=== PATIENT | male | born 1970 | race African-American/Black ===

== ENCOUNTER 2019-04-19 22:47 | Emergency (ER) | payer MEDICAID, OTHER ==
[~2019-04-19] VITALS: Ht 185.4 cm; Wt 68.0 kg
[~2019-04-19 22:47] MED LIST: CREON DR 12,001 EACH PO; DILAUDID1 MG/M1 IVP; DILAUDID4 MG ORAL; LISINOPRIL20 MG ORAL; OMEPRAZOLE40 M1 ORAL; PROTONIX40 MG ORAL; ZOFRAN ODT4 MG ORAL
[2019-04-19 22:58] VITALS: BP 156/90
--- NOTE | 2019-04-19 22:58 | NUR ---
ED Nurse Note: Walk-in patient with complaints of abodminal pain since earlier this afternoon. Patient reports history of pancreatitis. will continue to monitot.
[2019-04-19] MEDS ORDERED: LISINOPRIL5 MG ORAL (23:05)
[2019-04-19] MEDS ORDERED: METFORMIN500 MG/5 M PO (23:06)
--- NOTE | 2019-04-19 23:15 | NUR ---
ED Nurse Note: Blood labs drawn and sent to lab.
--- NOTE | 2019-04-19 23:24 | NUR ---
ED Nurse Note: ERMd at bedside.
[2019-04-19] MEDS ORDERED: Omnipaque-300 100ml vial INJ PRN (23:30)
[2019-04-19] MEDS ORDERED: Morphine Sulfate 4mg/ml Inj (IV USE ONLY) IVP ONE (23:30)
--- NOTE | 2019-04-19 23:31 | Emergency Room Report ---
History of Present Illness General Chief Complaint: Abdominal Pain Source: Patient Present Illness HPI Disclaimer: Please note that this report is being documented using [employer] technology. This can lead to erroneous entry secondary to incorrect interpretation by the dictating instrument. HPI: 48-year-old male history of former alcohol abuse, pancreatitis and gallstones presents for evaluation abdominal pain. Symptoms began today approximately 1 PM. Steadily worsening throughout the day. He reports nausea and some bilious emesis. Denies hematemesis. He reports pain in the upper abdomen more on the right than the left though there is pain in the left as well. Reports nausea but no longer vomiting. Denies diarrhea. Denies fever, chills, chest pain. Similar presentation in [place] [id number] told he had gallstones and that he should have his gallbladder removed but he declined at that time. Also had a history of pancreatitis with pancreatic stents but they have since been removed. Denies any recent alcohol use. Quit drinking 5 years ago. Denies drug use. PMH: Pancreatitis, former alcohol abuse, cholecystitis PSH: Cervical spines surgery Allergies: Denies Social Hx: Former alcohol use, sober 5 years COVID-19 risk:Travel to affect: No Allergies: Coded Allergies: No Known Allergies (Unverified , 04/19/19) Nursing Documentation-PMH Hx Cardiac Problems: Yes Hx Hypertension: Yes Hx Cancer: No Hx Neurological Problems: No Review of Systems All Other Systems: negative except mentioned in HPI Physical Exam Vital Signs Date Time Temp Pulse Resp B/P (MAP) Pulse Ox O2 Delivery O2 Flow Rate FiO2 04/19/19 22:58 98.2 79 18 156/90 (112) 98 Room Air General: Awake and alert, appears uncomfortable HEENT: NC/AT. EOMI. Cardiovascular: RRR. S1 and S2 normal. No murmur appreciated Resp: Normal work of breathing. No cough, wheezing or crackles appreciated Abdomen: Abdomen is soft, nondistended. There is tenderness palpation of the epigastrium and right upper quadrant with positive Atkins's tenderness. There is tenderness in the left upper quadrant as well though less severe. No tenderness in the lower quadrants no rebound. No masses appreciated. Skin: Intact. No abrasions, laceration or rash over the exposed skin MSK: Normal tone and bulk. Moving all extremities. No obvious deformity. Neuro: Awake and alert. Mentating appropriately. Medical Decision Making Diagnostic Impression: Primary Impression: Cholecystitis ER Course 48-year-old male presents for evaluation of abdominal pain. Differential includes was not limited to cholecystitis, pancreatitis, gastritis, gastroenteritis, alcohol abuse, hepatitis, nephrolithiasis to name a few. Most consistent with either pancreatitis or cholecystitis. Will draw broad labs, start IV fluids, antiemetics, pain medication and sent for CT scan of the abdomen and ultrasound as well. Laboratory Tests Test 04/19/19 23:15 04/20/19 00:10 White Blood Count 12.5 K/UL (4.8-10.8) H Red Blood Count 4.37 M/UL (4.70-6.10) L Hemoglobin 13.0 G/DL (14.2-18.0) L Hematocrit 40.1 % (42.0-52.0) L Mean Corpuscular Volume 92 FL (80-99) Mean Corpuscular Hemoglobin 29.6 PG (27.0-31.0) Mean Corpuscular Hemoglobin Concent 32.3 G/DL (32.0-36.0) Red Cell Distribution Width 12.8 % (11.6-14.8) Platelet Count 429 K/UL (150-450) Mean Platelet Volume 5.0 FL (6.5-10.1) L Neutrophils (%) (Auto) 69.1 % (45.0-75.0) Lymphocytes (%) (Auto) 22.0 % (20.0-45.0) Monocytes (%) (Auto) 5.7 % (1.0-10.0) Eosinophils (%) (Auto) 1.6 % (0.0-3.0) Basophils (%) (Auto) 1.6 % (0.0-2.0) Sodium Level 138 MMOL/L (136-145) Potassium Level 4.3 MMOL/L (3.5-5.1) Chloride Level 99 MMOL/L (98-107) Carbon Dioxide Level 28 MMOL/L (21-32) Anion Gap 11 mmol/L (5-15) Blood Urea Nitrogen 15 mg/dL (7-18) Creatinine 1.5 MG/DL (0.55-1.30) H Estimate Glomerular Filtration Rate > 60 mL/min (>60) Glucose Level 142 MG/DL (74-106) H Calcium Level 9.9 MG/DL (8.5-10.1) Total Bilirubin 0.5 MG/DL (0.2-1.0) Aspartate Amino Transferase (AST) 12 U/L (15-37) L Alanine Aminotransferase (ALT) 13 U/L (12-78) Alkaline Phosphatase 53 U/L (46-116) Total Protein 8.1 G/DL (6.4-8.2) Albumin 4.8 G/DL (3.4-5.0) Globulin 3.3 g/dL Albumin/Globulin Ratio 1.5 (1.0-2.7) Lipase 377 U/L (73-393) Urine Color Yellow Urine Appearance Clear Urine pH 5 (4.5-8.0) Urine Specific [place] 1.015 (1.005-1.035) Urine Protein Negative (NEGATIVE) Urine Glucose (UA) Negative (NEGATIVE) Urine Ketones 2+ (NEGATIVE) H Urine Blood Negative (NEGATIVE) Urine Nitrite Negative (NEGATIVE) Urine Bilirubin Negative (NEGATIVE) Urine Urobilinogen 1 MG/DL (0.0-1.0) H Urine Leukocyte Esterase 1+ (NEGATIVE) H Urine RBC 0 /HPF (0 - 0) Urine WBC 0-2 /HPF (0 - 0) Urine Squamous Epithelial Cells None /LPF (NONE/OCC) Urine Bacteria None /HPF (NONE) CT/MRI/US Diagnostic Results CT/MRI/US Diagnostic Results : Impression Preliminary Findings Only See Final Report For Complete Findings CT ABDOMEN & PELVIS With Contrast: Comparison: 09/17/12 pre- Normal lungs. Normal heart. Normal liver, bilateral kidneys, spleen and bilateral adrenal glands. Distended gallbladder with sludge. Extensive calcifications through the pancreas consistent with chronic pancreatitis. Distention of common hepatic duct at the hilum measuring 9.0 mm. Dilatation of the pancreatic duct up to 7 mm. Prominent appearance of the pancreatic head, cannot exclude inflammatory changes/acute pancreatitis. This area is essentially stable in size in the interval. Unremarkable stomach. No hiatal hernia. Normal small bowel. Diverticulosis with no signs of diverticulitis. Normal appendix. Urinary bladder is unremarkable with borderline thickening of the wall. Osseous structures within normal limits. Radiologist: Bridgette Cartagena MD Study ready at 00:48 and initial results transmitted at 01:09 Reevaluation Time: 02:34 Last Vital Signs Date Time Temp Pulse Resp B/P (MAP) Pulse Ox O2 Delivery O2 Flow Rate FiO2 04/19/19 22:58 79 18 Room Air 04/19/19 22:58 98.2 156/[address] does not show evidence of obstruction but does find evidence of chronic pancreatitis. No necrotizing infection identified. There was biliary sludge noted and an ultrasound was obtained. Preliminary interpretation concerning for dilated CBD, borderline GB wall. No pericholecystic fluid was appreciated by metallurgical or materials technician. Will treat as an acute cholecystitis. No evidence of a sending cholangitis at this time. Labs have returned within normal limits. He received Zosyn. Will arrange for admission and surgical evaluation. He will be transferred to a [facility] hospital. Stable condition for transfer Disposition: ER [facility] Condition: Stable Nicolas Mohan MD Apr 19, 2019 23:31
[2019-04-19 23:35] LABS: BASOPHILS % (AUTO) 1.6 % (0.0-2.0); EOSINOPHILS % (AUTO) 1.6 % (0.0-3.0); HEMATOCRIT 40.1 % (42.0-52.0); MEAN CORPUSCULAR VOLUME 92 FL (80-99); MONOCYTES % (AUTO) 5.7 % (1.0-10.0); NEUTROPHILS % (AUTO) 69.1 % (45.0-75.0); PLATELET COUNT 429 K/UL (150-450); RED BLOOD COUNT 4.37 M/UL (4.70-6.10); RED CELL DISTRIBUTION WIDTH 12.8 % (11.6-14.8); WHITE BLOOD COUNT 12.5 K/UL (4.8-10.8)
[2019-04-19 23:39] LABS: ANION GAP 11 mmol/L (5-15); BLOOD UREA NITROGEN 15 mg/dL (7-18); CALCIUM 9.9 MG/DL (8.5-10.1); CARBON DIOXIDE 28 MMOL/L (21-32); CHLORIDE 99 MMOL/L (98-107); CREATININE 1.5 MG/DL (0.55-1.30); POTASSIUM 4.3 MMOL/L (3.5-5.1); SODIUM 138 MMOL/L (136-145)
[2019-04-19 23:43] LABS: ALANINE AMINOTRANSFERASE 13 U/L (12-78); ALBUMIN 4.8 G/DL (3.4-5.0); ALBUMIN/GLOBULIN RATIO 1.5 (1.0-2.7); ALKALINE PHOSPHATASE 53 U/L (46-116); ASPARTATE AMINO TRANSFERASE 12 U/L (15-37); BILIRUBIN,TOTAL 0.5 MG/DL (0.2-1.0)
--- NOTE | 2019-04-20 00:25 | NUR ---
ED Nurse Note: Patient relaxing comfortably with no complaints, will continue to monitor.
[2019-04-20 00:31] LABS: APPEARANCE,URINE CLEAR; BILIRUBIN, URINE NEGATIVE (NEGATIVE); GLUCOSE, URINE (UA) NEGATIVE (NEGATIVE); KETONES,URINE 2+ (NEGATIVE); LEUKOCYTE ESTERASE ,URINE 1+ (NEGATIVE); NITRITE,URINE NEGATIVE (NEGATIVE); PH,URINE 5 (4.5-8.0); PROTEIN,URINE NEGATIVE (NEGATIVE); UROBILINOGEN,URINE 1 MG/DL (0.0-1.0)
[2019-04-20 00:41] LABS: COLOR,URINE YELLOW
[2019-04-20] MEDS ORDERED: HYDROmorphone 1mg/ml Carpuject IVP ONE ×2 (00:45→04:45)
--- NOTE | 2019-04-20 01:09 | Diagnostic Imaging Report ---
INDICATION: Abdominal pain TECHNIQUE: Continuous helical transaxial imaging of the abdomen and pelvis was obtained from the lung bases to the pubic symphysis during intravenous contrast administration. Coronal 2-D reformats were also obtained. Study obtained in a Siemens sensation [address] Automatic Exposure Control was utilized. Total Dose length Product (DLP): 243.[address] Dose Index Volume (CTDIvol): 4.7 mGy COMPARISON: None FINDINGS: Lungs: The visualized lung bases are clear. Liver: Unremarkable Gallbladder/biliary system: There is a layering density within the dependent portion of the gallbladder which may be small stones or sludge. Very mild biliary ductal dilatation is noted within the liver. The CBD is not well seen but is not likely dilated.. Spleen: Unremarkable Pancreas: There is extensive parenchymal calcification indicative of chronic pancreatitis within the head body and tail of the pancreas with dilatation of the main pancreatic duct. The area of the head of the pancreas is more prominent, but stable in appearance compared to the exam from 2013. Since that time, the body and tail the pancreas appear more atrophic. The prominence of the head of the pancreas although stable could be due to superimposed acute pancreatitis. Please correlate clinically. In addition could not exclude completely exclude the possibility of underlying tumor. Consider follow-up endoscopic ultrasound for further evaluation. No discrete mass is seen by this exam. Kidneys/Bladder: No hydronephrosis identified. Both kidneys enhance symmetrically. The urinary bladder is unremarkable.. Adrenal glands: Unremarkable Aorta/IVC: Mild calcification of the aorta and iliac arteries demonstrated. Bowel: There is moderate formed stool within the colon. There is no small bowel dilatation. Appendix is normal. Peritoneum: There is no free fluid. Bones: Unremarkable IMPRESSION: Evidence of chronic pancreatitis. Prominence of the head of the pancreas although stable compared to prior study from 2013 is noted. Superimposed acute pancreatitis is not excluded. Please correlate clinically. In addition, consider follow-up endoscopic ultrasound. Minimal biliary ductal dilatation in the liver. Cholelithiasis and/or sludge. Atherosclerotic vascular disease Moderate stool retention in the colon. The CT scanner at [facility] is accredited by the [employer] and the scans are performed using dose optimization techniques as appropriate to a performed exam including Automatic Exposure control.
[2019-04-20] MEDS ORDERED: Piperacillin/Tazobactam 3.375 GM in NS 110 ML IVPB ONE (01:15)
--- NOTE | 2019-04-20 01:45 | NUR ---
ED Nurse Note: Patient went down for abdominal ultrasound.
--- NOTE | 2019-04-20 01:45 | NUR ---
ED Nurse Note: Patient tolerated antibiotic well, will continue to monitor for return from Ultrasound.
--- NOTE | 2019-04-20 02:28 | NUR ---
ED Nurse Note: Patient returned from ultrasound,
--- NOTE | 2019-04-20 03:09 | Diagnostic Imaging Report ---
Indication: Abdominal pain Technique: Grayscale and duplex Doppler imaging of the abdomen performed. Comparison: None Findings: The liver is unremarkable. Doppler interrogation of the main portal vein shows patency with hepatopedal, monophasic flow. There is no biliary ductal dilatation identified. Gallbladder is notable for sludge and stones. The CBD is 1.2 cm.. The area of the pancreas shows calcifications which shadowing in a dilated main pancreatic duct. There demonstrated part of the aorta and IVC show no definite abnormalities. Both kidneys appear unremarkable. There is no hydronephrosis. IMPRESSION: Cholelithiasis. Dilated common bile duct. The dilated CBD is not appreciated on CT which was obtained subsequently. There was mild intrahepatic biliary ductal dilatation. Abnormal pancreas. Please refer to the CT report.
--- NOTE | 2019-04-20 03:45 | NUR ---
ED Nurse Note: Belongings sheet completed.
--- NOTE | 2019-04-20 04:00 | NUR ---
spoke with doctor at [facility] who accepted the transfer possibly to [facility]. Registration notified.
--- NOTE | 2019-04-20 04:15 | NUR ---
ED Nurse Note: Patient is resting comfortably with no s/s of acute distress. will continue to monitor for transfer.
--- NOTE | 2019-04-20 05:02 | NUR ---
ED Nurse Note: Report called into Anna RICKETTS at [facility].
--- NOTE | 2019-04-20 05:12 | NUR ---
ED Nurse Note: Patient departed with BLS to [place].
[2019-04-20 05:15] VITALS: BP 156/90
== END 2019-04-20 05:12 | disposition short-term general hospital (02) ==
LOC: EMR 23:18
DX: K81.9 Cholecystitis, unspecified (principal); I10 Essential (primary) hypertension; K86.1 Other chronic pancreatitis
CPT/HCPCS: 74177; 76700; 76705; 80053; 81003; 83690; 85025; 96361; 96365; 96375; 96376; J1170; J2270; J2405; J2543; J7030; Q9967; Z7502; 99284

== ENCOUNTER 2019-05-25 20:47 | Emergency (ER) | payer OTHER ==
[~2019-05-25] VITALS: Ht 188 cm; Wt 70.3 kg
[~2019-05-25 20:47] MED LIST changes: +LISINOPRIL5 MG ORAL; +METFORMIN500 MG/5 M PO
[2019-05-25 21:08] VITALS: BP 157/95
--- NOTE | 2019-05-25 21:08 | NUR ---
ED Nurse Note: Patient walked in from home d/t abdominal pain 10/10 aching for 3 weeks. Patient aao x 4 and ambulatory with steady gait. Patient stated he has hx of gallbladder stones and pancreatitis. Patient placed in room, stable during assessment.
--- NOTE | 2019-05-25 21:13 | NUR ---
ED Nurse Note: ERMD at bedside.
[2019-05-25] MEDS ORDERED: METFORMIN HCL1000 M1 ORAL (21:14)
[2019-05-25] MEDS ORDERED: Morphine Sulfate 4mg/ml Inj (IV USE ONLY) IVP ONE (21:15)
[2019-05-25] MEDS ORDERED: Ketorolac 30mg Inj IV ONE (21:15)
--- NOTE | 2019-05-25 21:15 | NUR ---
X-ray notified to page US tech.
[2019-05-25 21:44] LABS: ANION GAP 9 mmol/L (5-15); BLOOD UREA NITROGEN 19 mg/dL (7-18); CALCIUM 9.1 MG/DL (8.5-10.1); CARBON DIOXIDE 30 MMOL/L (21-32); CHLORIDE 99 MMOL/L (98-107); CREATININE 1.5 MG/DL (0.55-1.30); SODIUM 138 MMOL/L (136-145)
[2019-05-25 21:45] LABS: BASOPHILS % (AUTO) 1.3 % (0.0-2.0); EOSINOPHILS % (AUTO) 1.1 % (0.0-3.0); HEMATOCRIT 39.7 % (42.0-52.0); LYMPHOCYTES % (AUTO) 15.6 % (20.0-45.0); MEAN CORPUSCULAR VOLUME 95 FL (80-99); MONOCYTES % (AUTO) 4.8 % (1.0-10.0); NEUTROPHILS % (AUTO) 77.2 % (45.0-75.0); PLATELET COUNT 383 K/UL (150-450); RED BLOOD COUNT 4.19 M/UL (4.70-6.10); RED CELL DISTRIBUTION WIDTH 13.8 % (11.6-14.8); WHITE BLOOD COUNT 16.2 K/UL (4.8-10.8)
--- NOTE | 2019-05-25 21:45 | NUR ---
ED Nurse Note: Ultrasound at bedside.
[2019-05-25 21:48] LABS: ALANINE AMINOTRANSFERASE 15 U/L (12-78); ALBUMIN 4.5 G/DL (3.4-5.0); ALBUMIN/GLOBULIN RATIO 1.4 (1.0-2.7); ALKALINE PHOSPHATASE 55 U/L (46-116); ASPARTATE AMINO TRANSFERASE 12 U/L (15-37); BILIRUBIN,TOTAL 0.3 MG/DL (0.2-1.0)
[2019-05-25 21:50] LABS: APPEARANCE,URINE CLEAR; BILIRUBIN, URINE NEGATIVE (NEGATIVE); COLOR,URINE YELLOW; GLUCOSE, URINE (UA) NEGATIVE (NEGATIVE); KETONES,URINE 1+ (NEGATIVE); LEUKOCYTE ESTERASE ,URINE 1+ (NEGATIVE); NITRITE,URINE NEGATIVE (NEGATIVE); PH,URINE 6 (4.5-8.0); PROTEIN,URINE 1+ (NEGATIVE); UROBILINOGEN,URINE 4 MG/DL (0.0-1.0)
--- NOTE | 2019-05-25 22:27 | Diagnostic Imaging Report ---
EXAM: US Abdomen Complete CLINICAL HISTORY: ABD PAIN TECHNIQUE: Real-time ultrasound of the abdomen with image documentation. COMPARISON: CT abdomen and pelvis 04/20/2019. FINDINGS: Liver: Unremarkable appearance of the pancreatic parenchyma. No mass. Gallbladder: Sludge within the gallbladder. No gallstones. Common bile duct: Common bile duct measures 1 cm. Mild intrahepatic biliary dilatation. No intraductal stones. Pancreas: Distended pancreatic duct measuring 8 mm with numerous calcifications within the pancreatic parenchyma consistent with sequela of chronic pancreatitis. Kidneys: Unremarkable. No stones. No solid mass. No hydronephrosis. Spleen: Unremarkable. No splenomegaly. IMPRESSION: 1. Distended pancreatic duct measuring 8 mm with numerous calcifications within the pancreatic parenchyma consistent with sequela of chronic pancreatitis. 2. Intrahepatic and extra hepatic biliary dilatation likely related to stricturing from the chronic pancreatitis. 3. Sludge within the gallbladder.
[2019-05-25] MEDS ORDERED: NORCO 5-325 TA1 EAC1 ORAL (22:49)
[2019-05-25] MEDS ORDERED: FAMOTIDINE20 MG ORAL (22:49)
[2019-05-25 22:57] VITALS: BP 145/92
--- NOTE | 2019-05-25 22:57 | NUR ---
ER DISCHARGE NOTE: Patient is cleared to be discharged per ERMD, pt is aox4, on room air, with stable vital signs. pt was given dc and prescription instructions, pt was able to verbalize understanding, pt id band and iv site removed intact without complications. pt is able to ambulate with steady gait. pt took all belongings. pt stable upon discharge.
--- NOTE | 2019-05-25 23:01 | Emergency Room Report ---
History of Present Illness General Chief Complaint: Abdominal Pain Source: Patient Present Illness HPI 48-year-old male presents ED for evaluation of abdominal pain. Started today. Right upper quadrant. 10 out of 10, sharp, nonradiating. Notes nausea, denies vomiting. Denies fevers or chills. Denies chest pain. Denies diarrhea. Has history of chronic pancreatitis. States that he was seen here in April for same thing. Had gallstones with sludge and was transferred to [facility]. States that they elected not to perform surgery due to coronavirus and scheduled him as outpatient. States he has appointment with his PMD in June but states the pain started again today. No other aggravating relieving factors. Denies any other associated symptoms Allergies: Uncoded Allergies: SHELLFISH (Allergy, Intermediate, 05/25/19) COVID-19 Screening Contact w/high risk pt: No Recent Travel to affected area: No Experienced COVID-19 symptoms?: No Patient History Past Medical History: other - pancreatitis Past Surgical History: none Pertinent Family History: none Social History: Denies: smoking, alcohol use, drug use Immunizations: UTD Reviewed Nursing Documentation: PMH: Agreed; PSxH: Agreed Nursing Documentation-PMH Hx Cardiac Problems: No Hx Hypertension: Yes Hx Pacemaker: No Hx Asthma: No Hx COPD: No Hx Diabetes: Yes Hx Cancer: No Hx Gastrointestinal Problems: Yes - gallbladder stones, pancreatitis Hx Dialysis: No History Of Psychiatric Problem: No Hx Neurological Problems: No Hx Cerebrovascular Accident: No Hx Seizures: No Review of Systems All Other Systems: negative except mentioned in HPI Physical Exam Vital Signs Date Time Temp Pulse Resp B/P (MAP) Pulse Ox O2 Delivery O2 Flow Rate FiO2 05/25/19 21:08 85 18 Room Air 05/25/19 21:08 98.4 157/95 96 Sp02 EP Interpretation: reviewed, normal General Appearance: no apparent distress, alert, GCS 15, non-toxic Head: normocephalic, atraumatic Eyes: bilateral eye normal inspection, bilateral eye PERRL ENT: hearing grossly normal, normal pharynx, no angioedema, normal voice Neck: full range of motion, supple/symm/no masses Respiratory: chest non-tender, lungs clear, normal breath sounds, speaking full sentences Cardiovascular #1: regular rate, rhythm, no edema Cardiovascular #2: 2+ carotid (R), 2+ carotid (L), 2+ radial (R), 2+ radial (L) , 2+ dorsalis pedis (R), 2+ dorsalis pedis (L) Gastrointestinal: normal bowel sounds, soft, non-distended, no guarding, no rebound, tenderness - RUQ Rectal: deferred Genitourinary: normal inspection, no CVA tenderness Musculoskeletal: back normal, normal range of motion, gait/station normal, non- tender Neurologic: alert, motor strength/tone normal, oriented x3, sensory intact, responsive, speech normal Psychiatric: judgement/insight normal, memory normal, mood/affect normal, no suicidal/homicidal ideation Reflexes: 3+ bicep (R), 3+ bicep (L), 3+ tricep (R), 3+ tricep (L), 3+ knee (R) , 3+ knee (L) Lymphatic: no adenopathy Medical Decision Making Diagnostic Impression: Primary Impression: Biliary colic Additional Impression: Chronic pancreatitis Qualified Codes: K86.1 - Other chronic pancreatitis ER Course Hospital Course 48-year-old M presents to ED with abdominal pain Differential diagnosis includes-appendicitis, cholecystitis, small bowel obstruction, gastritis, Clinical course Patient placed on stretcher. After initial history and physical I ordered labs , IV fluids, pain medications and ABD US Labs - no leukocytosis, electrolytes ok , LFTs normal ABD US -findings consistent with chronic pancreatitis seen on previous CT and ultrasound. Sludge in gallbladder with stones. No gallbladder wall thickening I discussed findings with patient. On reassessment pain improved. No evidence of cholecystitis. LFTs within normal limits. We will discharge home. I will provide copy of ultrasound result. Patient states he has a PMD appointment in a few weeks. I will provide surgery referral I feel this is a highly complex case requiring extensive working including EKG/ Rhythm strip, Xray/CT/US, Blood/urine lab work, repeat exams while in ED, and administration of strong opiates/narcotics for pain control, admission to hospital or close patient follow up. Diagnosis - biliary colic, chronic pancreatitis Stable and discharged to home. Followup with PMD. Return to ED if symptoms recur or worsen Labs Test 05/25/19 21:23 05/25/19 21:26 White Blood Count 16.2 K/UL (4.8-10.8) Red Blood Count 4.19 M/UL (4.70-6.10) Hemoglobin 12.0 G/DL (14.2-18.0) Hematocrit 39.7 % (42.0-52.0) Mean Corpuscular Volume 95 FL (80-99) Mean Corpuscular Hemoglobin 28.6 PG (27.0-31.0) Mean Corpuscular Hemoglobin Concent 30.2 G/DL (32.0-36.0) Red Cell Distribution Width 13.8 % (11.6-14.8) Platelet Count 383 K/UL (150-450) Mean Platelet Volume 6.4 FL (6.5-10.1) Neutrophils (%) (Auto) 77.2 % (45.0-75.0) Lymphocytes (%) (Auto) 15.6 % (20.0-45.0) Monocytes (%) (Auto) 4.8 % (1.0-10.0) Eosinophils (%) (Auto) 1.1 % (0.0-3.0) Basophils (%) (Auto) 1.3 % (0.0-2.0) Sodium Level 138 MMOL/L (136-145) Potassium Level 4.0 MMOL/L (3.5-5.1) Chloride Level 99 MMOL/L (98-107) Carbon Dioxide Level 30 MMOL/L (21-32) Anion Gap 9 mmol/L (5-15) Blood Urea Nitrogen 19 mg/dL (7-18) Creatinine 1.5 MG/DL (0.55-1.30) Estimat Glomerular Filtration Rate > 60 mL/min (>60) Glucose Level 204 MG/DL (74-106) Calcium Level 9.1 MG/DL (8.5-10.1) Total Bilirubin 0.3 MG/DL (0.2-1.0) Aspartate Amino Transf (AST/SGOT) 12 U/L (15-37) Alanine Aminotransferase (ALT/SGPT) 15 U/L (12-78) Alkaline Phosphatase 55 U/L (46-116) Total Protein 7.7 G/DL (6.4-8.2) Albumin 4.5 G/DL (3.4-5.0) Globulin 3.2 g/dL Albumin/Globulin Ratio 1.4 (1.0-2.7) Lipase 226 U/L (73-393) Urine Color Yellow Urine Appearance Clear Urine pH 6 (4.5-8.0) Urine Specific [place] 1.015 (1.005-1.035) Urine Protein 1+ (NEGATIVE) Urine Glucose (UA) Negative (NEGATIVE) Urine Ketones 1+ (NEGATIVE) Urine Blood Negative (NEGATIVE) Urine Nitrite Negative (NEGATIVE) Urine Bilirubin Negative (NEGATIVE) Urine Urobilinogen 4 MG/DL (0.0-1.0) Urine Leukocyte Esterase 1+ (NEGATIVE) Urine RBC 0-2 /HPF (0 - 0) Urine WBC 0-2 /HPF (0 - 0) Urine Squamous Epithelial Cells None /LPF (NONE/OCC) Urine Bacteria Occasional /HPF (NONE) CT/MRI/US Diagnostic Results CT/MRI/US Diagnostic Results : Imaging Test Ordered: ABD US Impression COMPARISON: CT abdomen and pelvis 04/20/2019. FINDINGS: Liver: Unremarkable appearance of the pancreatic parenchyma. No mass. Gallbladder: Sludge within the gallbladder. No gallstones. Common bile duct: Common bile duct measures 1 cm. Mild intrahepatic biliary dilatation. No intraductal stones. Pancreas: Distended pancreatic duct measuring 8 mm with numerous calcifications within the pancreatic parenchyma consistent with sequela of chronic pancreatitis. Kidneys: Unremarkable. No stones. No solid mass. No hydronephrosis. Spleen: Unremarkable. No splenomegaly. IMPRESSION: 1. Distended pancreatic duct measuring 8 mm with numerous calcifications within the pancreatic parenchyma consistent with sequela of chronic pancreatitis. 2. Intrahepatic and extra hepatic biliary dilatation likely related to stricturing from the chronic pancreatitis. 3. Sludge within the gallbladder. Last Vital Signs Date Time Temp Pulse Resp B/P (MAP) Pulse Ox O2 Delivery O2 Flow Rate FiO2 05/25/19 21:08 98.4 85 18 157/95 (115) 96 Room Air Status: improved Disposition: HOME, SELF-CARE Condition: Stable Scripts Famotidine* (Pepcid 20mg tablet*) 20 Mg Tablet 20 MG ORAL DAILY, #30 TAB 0 Refills Prov: Maurice Alcala MD 05/25/19 Hydrocodone Bit/Acetaminophen 5-325* (NORCO 5-325 TABLET*) 1 Each Tablet 1 TAB ORAL Q6H PRN for FOR PAIN, #12 TAB 0 Refills Prov: Maurice Alcala MD 05/25/19 Referrals: Rey Carter Patient Instructions: Biliary Colic Maurice Alcala MD May 25, 2019 23:01
== END 2019-05-25 22:57 | disposition home or self-care (01) ==
LOC: EMR 21:15
DX: K80.50 Calculus of bile duct without cholangitis or cholecystitis without obstruction (principal); K86.1 Other chronic pancreatitis; Z91.013 Allergy to seafood; I10 Essential (primary) hypertension; E11.9 Type 2 diabetes mellitus without complications
CPT/HCPCS: 36415; 76700; 80053; 81003; 83690; 85025; 96374; 96375; J1885; J2270; J7040; Z7502; 99284